=== PATIENT | female | born 1990 | race American Indian/Alaskan Native ===

== ENCOUNTER 2016-07-06 07:47 | Emergency (ER) | payer SELFPAY ==
[2016-07-06 07:55] VITALS: BP 135/90
[2016-07-06 08:31] LABS: Basophils % (Auto) 0.5 % (0.0-1.8); Eosinophils % (Auto) 0.5 % (0.0-4.3); Hemoglobin 11.3 gm/dl (10.1-14.3); Mean Corpuscular HGB Conc 32 % (30-34); Mean Corpuscular Volume 72 fl (79-97); Platelet Count 265 K/mm3 (140-440); Red Blood Count 5.02 M/mm3 (3.65-5.03); Red Cell Distribution Width 14.9 % (13.2-15.2)
[2016-07-06 08:32] LABS: Mean Corpuscular Hemoglobin 23 pg (28-32)
[2016-07-06 09:03] LABS: Alanine Aminotransferase 7 units/L (7-56); Albumin/Globulin Ratio 1.7 %; Alkaline Phosphatase 34 units/L (35-129); Anion Gap 16 mmol/L; BUN/Creatinine Ratio 18.33; Bilirubin,Total 0.2 mg/dL (0.1-1.2); Blood Urea Nitrogen 11 mg/dL (7-17); Calcium 8.5 mg/dL (8.4-10.2); Carbon Dioxide 24 mmol/L (22-30); Chloride 106.9 mmol/L (98-107); Glucose 100 mg/dL (65-100); Lipase 29 units/L (13-60); Potassium 4.2 mmol/L (3.6-5.0); Sodium 143 mmol/L (137-145); Total Protein 6.3 g/dL (6.3-8.2)
[2016-07-06 12:52] LABS: Bilirubin,Urine NEG (Negative); Blood,Urine NEG (Negative); Ketones,Urine NEG (Negative); Leukocyte Esterase,Urine TR (Negative); Mucus,Urine 1+ /HPF; Nitrite,Urine NEG (Negative); Protein,Urine <15 mg/dL mg/dL (Negative); Urobilinogen,Urine < 2.0 mg/dL (<2.0)
--- NOTE | 2016-07-07 05:52 | ED Elopement Review ---
ED Pt Elopement review - Results review Lab results: Laboratory Tests 07/06/16 07/06/16 07/06/16 08:20 08:20 08:20 WBC 7.0 RBC 5.02 Hgb 11.3 Hct 36.0 MCV 72 L MCH 23 L MCHC 32 RDW 14.9 Plt Count 265 Lymph % (Auto) 18.6 [place] % (Auto) 6.0 Eos % (Auto) 0.5 Baso % (Auto) 0.5 Lymph # 1.3 [place] # 0.4 Eos # 0.0 Baso # 0.0 Seg Neutrophils % 74.4 H Seg Neutrophils # 5.2 Carbon Dioxide 24 BUN 11 Creatinine 0.6 L Estimated GFR > 60 BUN/Creatinine Ratio 18.33 Glucose 100 Calcium 8.5 Total Bilirubin 0.2 AST 12 ALT 7 Alkaline Phosphatase 34 L Total Protein 6.3 Albumin 4.0 Albumin/Globulin Ratio 1.7 Lipase 29 HCG, Qual Negative Urine Color Urine Turbidity Urine pH Ur Specific [place] Urine Protein Urine Glucose (UA) Urine Ketones Urine Blood Urine Nitrite Urine Bilirubin Urine Urobilinogen Ur Leukocyte Esterase Urine WBC (Auto) Urine RBC (Auto) U Epithel Cells (Auto) Urine Mucus 07/06/16 11:52 WBC RBC Hgb Hct MCV MCH MCHC RDW Plt Count Lymph % (Auto) [place] % (Auto) Eos % (Auto) Baso % (Auto) Lymph # [place] # Eos # Baso # Seg Neutrophils % Seg Neutrophils # Carbon Dioxide BUN Creatinine Estimated GFR BUN/Creatinine Ratio Glucose Calcium Total Bilirubin AST ALT Alkaline Phosphatase Total Protein Albumin Albumin/Globulin Ratio Lipase HCG, Qual Urine Color Yellow Urine Turbidity Clear Urine pH 8.0 H Ur Specific [place] 1.023 Urine Protein <15 mg/dl Urine Glucose (UA) Neg Urine Ketones Neg Urine Blood Neg Urine Nitrite Neg Urine Bilirubin Neg Urine Urobilinogen < 2.0 Ur Leukocyte Esterase Tr Urine WBC (Auto) 3.0 Urine RBC (Auto) 3.0 U Epithel Cells (Auto) 3.0 Urine Mucus 1+ - Call Back decision Pt Call Back Decision: No action required
== END 2016-07-06 08:25 | disposition left against medical advice (07) ==
LOC: ED 07:47
DX: R10.11 Right upper quadrant pain (principal); R11.2 Nausea with vomiting, unspecified; Z53.21 Procedure and treatment not carried out due to patient leaving prior to being seen by health care provider
CPT/HCPCS: 36415; 80053; 81001; 83690; 84703; 85025

== ENCOUNTER 2017-01-12 08:46 | Emergency (ER) | payer OTHER ==
[2017-01-12 09:05] VITALS: BP 133/96
[2017-01-12] MEDS ORDERED: ATIVAN IV PRN (09:09)
[2017-01-12] MEDS ORDERED: REGLAN IV ONE (09:09)
[2017-01-12] MEDS ORDERED: MORPHINE IV ONE ×2 (09:09→10:32)
[2017-01-12] MEDS ORDERED: NACL 0.9% 1000 ML 1,000 ML IV ONE (09:09)
[2017-01-12 09:25] LABS: Basophils % (Auto) 0.8 % (0.0-1.8); Eosinophils % (Auto) 0.8 % (0.0-4.3); Hematocrit 34.3 % (30.3-42.9); Hemoglobin 10.7 gm/dl (10.1-14.3); Mean Corpuscular HGB Conc 31 % (30-34); Mean Corpuscular Volume 71 fl (79-97); Platelet Count 267 K/mm3 (140-440); Red Blood Count 4.86 M/mm3 (3.65-5.03); White Blood Count 5.1 K/mm3 (4.5-11.0)
[2017-01-12 09:26] LABS: Mean Corpuscular Hemoglobin 22 pg (28-32)
[2017-01-12 09:42] LABS: Anion Gap 20 mmol/L; Blood Urea Nitrogen 10 mg/dL (7-17); Calcium 8.3 mg/dL (8.4-10.2); Carbon Dioxide 22 mmol/L (22-30); Chloride 104.3 mmol/L (98-107); Glucose 103 mg/dL (65-100); Potassium 3.8 mmol/L (3.6-5.0); Sodium 142 mmol/L (137-145)
[2017-01-12 09:58] LABS: Bilirubin,Urine NEG (Negative); Blood,Urine LG (Negative); Ketones,Urine 20 mg/dL (Negative); Leukocyte Esterase,Urine TR (Negative); Mucus,Urine FEW /HPF; Nitrite,Urine NEG (Negative); Protein,Urine <15 mg/dL mg/dL (Negative); Urobilinogen,Urine < 2.0 mg/dL (<2.0); WBC,Urine < 1.0 /HPF (0.0-6.0)
[2017-01-12] MEDS ORDERED: ATIVAN IV ONE (10:32)
--- NOTE | 2017-01-12 10:37 | Emergency Department Report ---
ED N/V/D HPI - General Chief complaint: Abdominal Pain Stated complaint: ABD PAIN Time Seen by Provider: 01/12/17 10:21 Source: EMS Mode of arrival: Stretcher Limitations: No Limitations - History of Present Illness Initial comments: 26-year-old female with known history of gastroparesis here with worsening nausea vomiting since yesterday. Patient symptoms started last evening. She tried some promethazine and chicken broth was unable to keep down. She is complaining of crampy pain throughout her abdomen. Her last flare was approximately 2 days ago that she was able to "those symptoms. Denies fevers chills. No diarrhea. 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 -: Sudden Description of Vomiting: food contents Description of Diarrhea: water, mucous Associated Abdominal Pain: Yes Location: diffuse Radiation: none Severity: moderate Improves with: none Worsens with: eating, movement Associated Symptoms: nausea/vomiting, other (gastroparesis). denies: myalgias, chest pain, cough, diaphoresis, fever/chills, headaches, loss of appetite - Related Data Home Medications Medication Instructions Recorded Confirmed Last Taken No Known Home Medications [No 07/06/16 07/06/16 Unknown Reported Home Medications] Allergies Allergy/AdvReac Type Severity Reaction Status Date / Time haloperidol lactate AdvReac Unknown Verified 01/12/17 09:00 [From Haldol] tramadol AdvReac Unknown Verified 01/12/17 09:00 ED Review of Systems ROS: Stated complaint: ABD PAIN Other details as noted in HPI Comment: All other systems reviewed and negative Constitutional: denies: chills, fever Eyes: denies: eye pain, eye discharge, vision change ENT: denies: ear pain, throat pain Respiratory: denies: cough, shortness of breath, wheezing Cardiovascular: denies: chest pain, palpitations Endocrine: no symptoms reported Gastrointestinal: abdominal pain, nausea, vomiting. denies: diarrhea, hematemesis Genitourinary: denies: urgency, dysuria, discharge Musculoskeletal: denies: back pain, joint swelling, arthralgia Skin: denies: rash, lesions Neurological: denies: headache, weakness, paresthesias Psychiatric: denies: anxiety, depression Hematological/Lymphatic: denies: easy bleeding, easy bruising ED Past Medical Hx - Past Medical History Previous Medical History?: Yes Hx Psychiatric Treatment: Yes (ANXIETY / DEPRESSION /Substance abuse) Additional medical history: gastroparesis - Surgical History Additional Surgical History: - Family History Family history: no significant - Social History Smoking Status: Never Smoker Substance Use Type: None - Medications Home Medications: Home Medications Medication Instructions Recorded Confirmed Last Taken Type No Known Home Medications [No 07/06/16 07/06/16 Unknown History Reported Home Medications] ED Physical Exam - General Limitations: No Limitations General appearance: alert, other (tearful) - Head Head exam: Present: atraumatic, normocephalic - Eye Eye exam: Present: normal appearance, PERRL - ENT ENT exam: Present: normal orophraynx, mucous membranes moist - Neck Neck exam: Present: normal inspection - Respiratory Respiratory exam: Present: normal lung sounds bilaterally. Absent: respiratory distress, wheezes, rales - Cardiovascular Cardiovascular Exam: Present: regular rate, normal rhythm. Absent: systolic murmur, diastolic murmur, rubs, gallop - GI/Abdominal GI/Abdominal exam: Present: soft, tenderness, guarding, normal bowel sounds. Absent: rebound, rigid - Extremities Exam Extremities exam: Present: normal inspection, full ROM. Absent: tenderness - Back Exam Back exam: Absent: full ROM, tenderness, CVA tenderness (R), CVA tenderness (L) - Neurological Exam Neurological exam: Present: alert, oriented X3 - Psychiatric Psychiatric exam: Present: normal affect, normal mood - Skin Skin exam: Present: warm, dry, intact, normal color. Absent: rash ED Course Vital Signs 01/12/17 01/12/17 08:54 09:03 Temperature 98.7 F 98.7 F Pulse Rate 70 Respiratory 18 Rate Blood Pressure 133/96 [Left] O2 Sat by Pulse 100 Oximetry ED Medical Decision Making - Lab Data Result diagrams: 01/12/17 09:12 01/12/17 09:12 Laboratory Results - last 24 hr 01/12/17 01/12/17 01/12/17 09:04 09:12 09:12 WBC 5.1 RBC 4.86 Hgb 10.7 Hct 34.3 MCV 71 L MCH 22 L MCHC 31 RDW 14.0 Plt Count 267 Lymph % (Auto) 34.0 [place] % (Auto) 7.6 H Eos % (Auto) 0.8 Baso % (Auto) 0.8 Lymph # 1.7 [place] # 0.4 Eos # 0.0 Baso # 0.0 Seg Neutrophils % 56.8 Seg Neutrophils # 2.9 Sodium 142 Potassium 3.8 Chloride 104.3 Carbon Dioxide 22 Anion Gap 20 BUN 10 Creatinine 0.5 L Estimated GFR > 60 BUN/Creatinine Ratio 20.00 Glucose 103 H Calcium 8.3 L Urine Color Straw Urine Turbidity Clear Urine pH 6.0 Ur Specific [place] 1.017 Urine Protein <15 mg/dl Urine Glucose (UA) Neg Urine Ketones 20 Urine Blood Lg Urine Nitrite Neg Ur Reducing Substances Not Reportable Urine Bilirubin Neg Urine Ictotest Not Reportable Urine Urobilinogen < 2.0 Ur Leukocyte Esterase Tr Urine WBC (Auto) < 1.0 Urine RBC (Auto) 147.0 U Epithel Cells (Auto) 2.0 Urine Mucus Few Urine HCG, Qual Negative - Medical Decision Making 26-year-old female with a history of gastroparesis here with recurrent episode of gastroparesis. Patient is very dramatic and tearful. She has diffuse tenderness on clinical exam. She is not . She has no white count and her chemistry is unremarkable. Plan to treat with IV fluids and morphine and Ativan and Zofran. If unable to improve we'll admit to the hospital. Patient improved after 2 rounds of morphine and Ativan however she was requesting Dilaudid which I declined to give her. The patient eloped after my refusal. She is safe and stable to leave on her own. Portions of this chart were dictated with dictation software. There may be dictation errors contained within this note. Critical care attestation.: If time is entered above; I have spent that time in minutes in the direct care of this critically ill patient, excluding procedure time. ED Disposition Clinical Impression: Nausea & vomiting, Abdominal pain Disposition: Z ELOPED Is pt being admited?: No Condition: Stable Instructions: Abdominal Pain (ED) Referrals: PRIMARY CARE, [Primary Care Provider] - 3-5 Days
== END 2017-01-12 14:40 | disposition left against medical advice (07) ==
LOC: ED 08:46
DX: R11.2 Nausea with vomiting, unspecified (principal); R10.84 Generalized abdominal pain; F41.9 Anxiety disorder, unspecified; F32.9 Major depressive disorder, single episode, unspecified; K31.84 Gastroparesis; Z88.8 Allergy status to other drugs, medicaments and biological substances
CPT/HCPCS: 36415; 80048; 81001; 81025; 85025; 96361; 96374; 96375; 96376; 99283; J2060; J2270; J2765; J7030

== ENCOUNTER 2017-01-18 11:14 | Emergency (ER) | payer OTHER ==
[2017-01-18] MEDS ORDERED: DILAUDID IV ONE ×2 (11:39→13:13)
[2017-01-18] MEDS ORDERED: BENADRYL IV ONE (11:39)
[2017-01-18] MEDS ORDERED: REGLAN IV ONE (11:39)
[2017-01-18 12:00] LABS: Basophils % (Auto) 0.6 % (0.0-1.8); Eosinophils % (Auto) 1.1 % (0.0-4.3); Hematocrit 38.3 % (30.3-42.9); Hemoglobin 11.9 gm/dl (10.1-14.3); Mean Corpuscular HGB Conc 31 % (30-34); Mean Corpuscular Volume 72 fl (79-97); Platelet Count 357 K/mm3 (140-440); Red Blood Count 5.33 M/mm3 (3.65-5.03); Red Cell Distribution Width 14.6 % (13.2-15.2); White Blood Count 4.9 K/mm3 (4.5-11.0)
[2017-01-18] MEDS ORDERED: D5NS 1,000 ML IV SCH (12:00)
[2017-01-18 12:08] LABS: Mean Corpuscular Hemoglobin 22 pg (28-32)
[2017-01-18 12:19] LABS: Alanine Aminotransferase 9 units/L (7-56); Albumin 4.8 g/dL (3.9-5); Albumin/Globulin Ratio 2.1 %; Alkaline Phosphatase 32 units/L (35-129); Anion Gap 17 mmol/L; Blood Urea Nitrogen 8 mg/dL (7-17); Calcium 9.3 mg/dL (8.4-10.2); Carbon Dioxide 26 mmol/L (22-30); Chloride 101.6 mmol/L (98-107); Glucose 101 mg/dL (65-100); Lipase 37 units/L (13-60); Sodium 141 mmol/L (137-145); Total Protein 7.1 g/dL (6.3-8.2)
--- NOTE | 2017-01-18 12:46 | Emergency Department Report ---
ED Abdominal Pain HPI - General Chief Complaint: Abdominal Pain Stated Complaint: N/V Time Seen by Provider: 01/18/17 11:35 Source: patient, EMS Mode of arrival: Stretcher Limitations: No Limitations - History of Present Illness Initial Comments: 26 year old female with a past medical history of gastroparesis, substance abuse , anxiety and depression presents to the hospital complaints of abdominal pain and nausea and vomiting that started 2 hours prior to arrival. Pain is 10/10 intensity described as sharp, crampy, and aching, constant, worse palpation and greatest at the right upper quadrant and epigastric area. Patient reports this is similar to her gastroparesis episodes in the past. She has had extensive previous workup including colonoscopy, ultrasounds, CAT scans. Patient is to see a GI specialist with [facility] but after losing her insurance she got a bradycardic and seen by [facility]. Patient was seen and evaluated here on the for similar symptoms and was discharged after ED treatment. Patient states she took Phenergan prior to arrival without improvement. Severity scale (0 -10): 3 - Related Data Previous Rx's Medication Instructions Recorded Last Taken Type Ondansetron [Zofran Odt] 4 mg PO Q8HR PRN #20 tab.rapdis 01/18/17 Unknown Rx Oxycodone HCl/Acetaminophen 1 each PO Q6HR PRN #20 tablet 01/18/17 Unknown Rx [Percocet 7.5/325 mg] Allergies Allergy/AdvReac Type Severity Reaction Status Date / Time haloperidol lactate AdvReac Unknown Verified 01/12/17 09:00 [From Haldol] tramadol AdvReac Unknown Verified 01/12/17 09:00 ED Review of Systems ROS: Stated complaint: N/V Other details as noted in HPI Comment: All other systems reviewed and negative Other: Constitutional: No fevers chills or weight loss Eyes: No eye pain visual changes or discharge ENT: No ear pain or throat pain Neck: Denies pain Respiratory: Denies cough wheezing shortness of breath Cardiovascular: Denies chest pain, palpitations, syncope GI: As per HPI : Denies dysuria Musculoskeletal: Denies back pain, joint swelling Skin: Denies rash, lesions, erythema Neurologic: Denies headache, numbness, weakness Psychiatric: Denies suicidal ideation, hallucinations ED Past Medical Hx - Past Medical History Hx Psychiatric Treatment: Yes (ANXIETY / DEPRESSION /Substance abuse) Additional medical history: gastroparesis - Surgical History Additional Surgical History: - Social History Smoking Status: Light Tobacco Smoker Substance Use Type: Marijuana - Medications Home Medications: Home Medications Medication Instructions Recorded Confirmed Last Taken Type Ondansetron [Zofran Odt] 4 mg PO Q8HR PRN #20 tab.rapdis 01/18/17 Unknown Rx Oxycodone HCl/Acetaminophen 1 each PO Q6HR PRN #20 tablet 01/18/17 Unknown Rx [Percocet 7.5/325 mg] ED Physical Exam - General Limitations: No Limitations - Other Other exam information: General: No limitations, patient is alert in no acute distress Head exam: Atraumatic, normocephalic Eyes exam: Normal appearance ENT: Moist mucous membrane, normal oropharynx Neck exam: Normal inspection, full range of motion, no meningismus nontender Respiratory exam: Clear to auscultation bilateral, no wheezes, rales, crackles Cardiovascular: Normal rate and rhythm, normal heart sounds Abdomen: Soft, nondistended, generalized tenderness greatest in the right upper quadrant and epigastric area Extremity: Full range of motion normal inspection no deformity Back: Normal Inspection, full range of motion, no tenderness Neurologic: Alert, oriented x3, cranial nerves intact, no motor or sensory deficit Psychiatric: Tearful, thrashing in bed secondary to pain Skin: Warm, dry, intact ED Course Vital Signs 01/18/17 01/18/17 01/18/17 11:27 11:43 11:51 Temperature 98.3 F Pulse Rate 95 H 58 L Respiratory 16 0 L Rate Blood Pressure 160/98 Blood Pressure [Left] O2 Sat by Pulse 99 100 94 Oximetry 01/18/17 01/18/17 12:07 12:11 Temperature 99 F Pulse Rate 62 Respiratory 16 16 Rate Blood Pressure Blood Pressure 148/84 [Left] O2 Sat by Pulse 97 98 Oximetry - Reevaluation(s) Reevaluation #1: 01/18/17 12:49 Patient was treated with Dilaudid, IV fluids (D5 NS), Reglan, and Benadryl (pt received NS 1 L Via EMS) 01/18/17 14:19 Patient currently feeling better after a total of 2 mg of Dilaudid name of medication. Receiving IV fluids and will be discharged upon completion. Patient agrees that she does not feel like she needs any imaging studies at this time because pain is similar to previous exacerbations 01/18/17 14:31 ED Medical Decision Making - Lab Data Result diagrams: 01/18/17 11:47 01/18/17 11:47 Lab Results 01/18/17 01/18/17 01/18/17 Range/Units 11:47 11:47 11:47 WBC 4.9 (4.5-11.0) K/mm3 RBC 5.33 H (3.65-5.03) M/mm3 Hgb 11.9 (10.1-14.3) gm/dl Hct 38.3 (30.3-42.9) % MCV 72 L (79-97) fl MCH 22 L (28-32) pg MCHC 31 (30-34) % RDW 14.6 (13.2-15.2) % Plt Count 357 (140-440) K/mm3 Lymph % (Auto) 36.7 H (13.4-35.0) % [place] % (Auto) 6.9 (0.0-7.3) % Eos % (Auto) 1.1 (0.0-4.3) % Baso % (Auto) 0.6 (0.0-1.8) % Lymph # 1.8 (1.2-5.4) K/mm3 [place] # 0.3 (0.0-0.8) K/mm3 Eos # 0.1 (0.0-0.4) K/mm3 Baso # 0.0 (0.0-0.1) K/mm3 Seg Neutrophils % 54.7 (40.0-70.0) % Seg Neutrophils # 2.7 (1.8-7.7) K/mm3 Sodium 141 (137-145) mmol/L Potassium 4.0 (3.6-5.0) mmol/L Chloride 101.6 (98-107) mmol/L Carbon Dioxide 26 (22-30) mmol/L Anion Gap 17 mmol/L BUN 8 (7-17) mg/dL Creatinine 0.5 L (0.7-1.2) mg/dL Estimated GFR > 60 ml/min BUN/Creatinine Ratio 16.00 % Glucose 101 H (65-100) mg/dL POC Glucose (70-105) Calcium 9.3 (8.4-10.2) mg/dL Total Bilirubin 0.30 (0.1-1.2) mg/dL AST 11 (5-40) units/L ALT 9 (7-56) units/L Alkaline Phosphatase 32 L (35-129) units/L Total Protein 7.1 (6.3-8.2) g/dL Albumin 4.8 (3.9-5) g/dL Albumin/Globulin Ratio 2.1 % Lipase 37 (13-60) units/L HCG, Qual Negative (Negative) 01/18/17 Range/Units 11:56 WBC (4.5-11.0) K/mm3 RBC (3.65-5.03) M/mm3 Hgb (10.1-14.3) gm/dl Hct (30.3-42.9) % MCV (79-97) fl MCH (28-32) pg MCHC (30-34) % RDW (13.2-15.2) % Plt Count (140-440) K/mm3 Lymph % (Auto) (13.4-35.0) % [place] % (Auto) (0.0-7.3) % Eos % (Auto) (0.0-4.3) % Baso % (Auto) (0.0-1.8) % Lymph # (1.2-5.4) K/mm3 [place] # (0.0-0.8) K/mm3 Eos # (0.0-0.4) K/mm3 Baso # (0.0-0.1) K/mm3 Seg Neutrophils % (40.0-70.0) % Seg Neutrophils # (1.8-7.7) K/mm3 Sodium (137-145) mmol/L Potassium (3.6-5.0) mmol/L Chloride (98-107) mmol/L Carbon Dioxide (22-30) mmol/L Anion Gap mmol/L BUN (7-17) mg/dL Creatinine (0.7-1.2) mg/dL Estimated GFR ml/min BUN/Creatinine Ratio % Glucose (65-100) mg/dL POC Glucose 98 (70-105) Calcium (8.4-10.2) mg/dL Total Bilirubin (0.1-1.2) mg/dL AST (5-40) units/L ALT (7-56) units/L Alkaline Phosphatase (35-129) units/L Total Protein (6.3-8.2) g/dL Albumin (3.9-5) g/dL Albumin/Globulin Ratio % Lipase (13-60) units/L HCG, Qual (Negative) - Medical Decision Making Pain and vomiting is controlled without any acute lab abnormality. Patient did not receive imaging studies due to complaint of exacerbation of chronic pain and normal laboratory findings. Patient admits to running out of her Percocet and states that she plans to see pain management if GI continues not to find any specific diagnosis beyond gaseous previous - Differential Diagnosis gastroparesis, biliary colic, drug-seeking, UTI, appendicitis, diverticul Critical Care Time: No Critical care attestation.: If time is entered above; I have spent that time in minutes in the direct care of this critically ill patient, excluding procedure time. ED Disposition Clinical Impression: Nausea & vomiting, Abdominal pain, Gastroparesis Disposition: - TO HOME OR SELFCARE Is pt being admited?: No Condition: Stable Instructions: Abdominal Pain (ED), Acute Nausea and Vomiting (ED) Additional Instructions: Take the medication as prescribed. Return if symptoms worsen. Prescriptions: Ondansetron [Zofran Odt] 4 mg PO Q8HR PRN #20 tab.rapdis PRN Reason: Nausea And Vomiting Oxycodone HCl/Acetaminophen [Percocet 7.5/325 mg] 1 each PO Q6HR PRN #20 tablet PRN Reason: Pain Referrals: your, gi doctor [Other] - 3-5 Days Time of Disposition: 14:31
[2017-01-18 13:29] LABS: Bilirubin,Urine NEG (Negative); Blood,Urine NEG (Negative); Ketones,Urine NEG (Negative); Leukocyte Esterase,Urine NEG (Negative); Mucus,Urine FEW /HPF; Nitrite,Urine NEG (Negative); Protein,Urine <15 mg/dL mg/dL (Negative); RBC,Urine < 1.0 /HPF (0.0-6.0); Urobilinogen,Urine < 2.0 mg/dL (<2.0)
[2017-01-18 15:33] VITALS: BP 113/57
== END 2017-01-18 15:33 | disposition home or self-care (01) ==
LOC: ED 11:14
DX: K31.84 Gastroparesis (principal); R11.2 Nausea with vomiting, unspecified; F41.9 Anxiety disorder, unspecified; F32.9 Major depressive disorder, single episode, unspecified; F17.210 Nicotine dependence, cigarettes, uncomplicated; F12.90 Cannabis use, unspecified, uncomplicated; Z88.8 Allergy status to other drugs, medicaments and biological substances
CPT/HCPCS: 36415; 80053; 81001; 82962; 83690; 84703; 85025; 96361; 96374; 96375; 96376; 99284; J1170; J1200; J2765; J7042

== ENCOUNTER 2017-06-03 09:11 | Emergency (ER) | payer OTHER ==
[2017-06-03] MEDS ORDERED: DILAUDID IV ONE ×2 (09:52→11:19)
[2017-06-03] MEDS ORDERED: BENADRYL IV ONE (09:52)
[2017-06-03] MEDS ORDERED: REGLAN IV ONE (09:52)
[2017-06-03] MEDS ORDERED: NACL 0.9% 1000 ML 1,000 ML IV ONE (09:56)
[2017-06-03] MEDS ORDERED: ZOFRAN IV ONE (09:56)
[2017-06-03] MEDS ORDERED: DILAUDID ONE ×2 (10:02→12:39)
[2017-06-03 10:04] LABS: Basophils % (Auto) 0.9 % (0.0-1.8); Eosinophils % (Auto) 0.8 % (0.0-4.3); Hematocrit 36.6 % (30.3-42.9); Hemoglobin 11.3 gm/dl (10.1-14.3); Mean Corpuscular HGB Conc 31 % (30-34); Mean Corpuscular Volume 71 fl (79-97); Platelet Count 315 K/mm3 (140-440); Red Blood Count 5.15 M/mm3 (3.65-5.03); Red Cell Distribution Width 14.6 % (13.2-15.2); White Blood Count 7.1 K/mm3 (4.5-11.0)
[2017-06-03 10:09] LABS: Mean Corpuscular Hemoglobin 22 pg (28-32)
[2017-06-03 10:13] LABS: Bacteria,Urine 1+ /HPF (Negative); Bilirubin,Urine NEG (Negative); Blood,Urine NEG (Negative); Ketones,Urine NEG (Negative); Leukocyte Esterase,Urine NEG (Negative); Mucus,Urine 1+ /HPF; Nitrite,Urine NEG (Negative); Protein,Urine <15 mg/dL mg/dL (Negative); Urobilinogen,Urine < 2.0 mg/dL (<2.0)
[2017-06-03 10:17] LABS: Anion Gap 19 mmol/L; BUN/Creatinine Ratio 18; Blood Urea Nitrogen 9 mg/dL (7-17); Calcium 8.6 mg/dL (8.4-10.2); Carbon Dioxide 23 mmol/L (22-30); Chloride 106.3 mmol/L (98-107); Glucose 106 mg/dL (65-100); Potassium 3.8 mmol/L (3.6-5.0); Sodium 144 mmol/L (137-145)
[2017-06-03 10:45] LABS: Alanine Aminotransferase 8 units/L (7-56); Albumin 4.3 g/dL (3.9-5); Albumin/Globulin Ratio 1.8 %; Alkaline Phosphatase 33 units/L (35-129); Lipase 29 units/L (13-60); Total Protein 6.7 g/dL (6.3-8.2)
[2017-06-03 10:57] LABS: Bilirubin,Direct < 0.2 mg/dL (0-0.2)
--- NOTE | 2017-06-03 11:29 | Emergency Department Report ---
ED Abdominal Pain HPI - General Chief Complaint: Abdominal Pain Stated Complaint: ABD PAIN Time Seen by Provider: 06/03/17 11:18 Source: patient, old records reviewed Mode of arrival: Stretcher Limitations: No Limitations - History of Present Illness Initial Comments: 27-year-old female the past medical history gastroparesis presents to the hospital complaining of abdominal pain since 7 AM. Pain is constant, aching and sharp, right upper quadrant radiates to the back. Pain is rated 10/10 intensity. Positive associated nausea, vomiting, diarrhea, with by mouth intolerance. Patient states this feels similar to her previous gastroparesis episodes that started after receiving a . Patient states she's not had a significant flare for at least 3 months. She has had previous GI workup including colonoscopy, endoscopy, and gallbladder checked and denies other pathology. No melena, hematochezia, hematemesis, or fever reported. Previous medical records reviewed and last abd CT/US on record was performed 2013. Severity scale (0 -10): 10 - Related Data Previous Rx's Medication Instructions Recorded Last Taken Type Oxycodone HCl/Acetaminophen 1 each PO Q6HR PRN #20 tablet 01/18/17 Unknown Rx [Percocet 7.5/325 mg] HYDROcodone/APAP 7.5-325 [[place] 1 each PO Q6HR PRN #20 tablet 06/03/17 Unknown Rx 7.5/325] Ondansetron [Zofran ODT TAB] 4 mg PO Q8HR PRN #10 tab.rapdis 06/03/17 Unknown Rx Promethazine [Phenergan TAB] 25 mg PO Q6HR PRN #30 tab 06/03/17 Unknown Rx Allergies Allergy/AdvReac Type Severity Reaction Status Date / Time haloperidol lactate AdvReac Unknown Verified 01/12/17 09:00 [From Haldol] tramadol AdvReac Unknown Verified 01/12/17 09:00 ED Review of Systems ROS: Stated complaint: ABD PAIN Other details as noted in HPI Comment: All other systems reviewed and negative Other: Constitutional: No fevers chills Eyes: No eye pain visual changes ENT: No ear pain or throat pain Neck: Denies pain Respiratory: Denies cough wheezing shortness of breath Cardiovascular: Denies chest pain, palpitations, syncope GI: as per hpi : Denies dysuria Musculoskeletal: denies joint swelling Skin: Denies rash, lesions, erythema Neurologic: Denies headache, numbness, weakness Psychiatric: Denies suicidal ideation, hallucinations ED Past Medical Hx - Past Medical History Hx Psychiatric Treatment: Yes (ANXIETY / DEPRESSION /Substance abuse) Additional medical history: gastroparesis - Surgical History Additional Surgical History: - Social History Smoking Status: Light Tobacco Smoker Substance Use Type: None - Medications Home Medications: Home Medications Medication Instructions Recorded Confirmed Last Taken Type Oxycodone HCl/Acetaminophen 1 each PO Q6HR PRN #20 tablet 01/18/17 Unknown Rx [Percocet 7.5/325 mg] HYDROcodone/APAP 7.5-325 [[place] 1 each PO Q6HR PRN #20 tablet 06/03/17 Unknown Rx 7.5/325] Ondansetron [Zofran ODT TAB] 4 mg PO Q8HR PRN #10 tab.rapdis 06/03/17 Unknown Rx Promethazine [Phenergan TAB] 25 mg PO Q6HR PRN #30 tab 06/03/17 Unknown Rx ED Physical Exam - General Limitations: No Limitations - Other Other exam information: General: Patient standing and moving around and would not remain still due to pain Head exam: Atraumatic, normocephalic Eyes exam: Normal appearance, nonicteric sclera ENT: Moist mucous membrane, normal oropharynx Neck exam: Normal inspection, full range of motion, no meningismus nontender Respiratory exam: Clear to auscultation bilateral, no wheezes, rales, crackles Cardiovascular: Tachycardia regular rhythm Abdomen: Soft, nondistended, right upper quadrant tenderness, no rebound or guarding Extremity: Full range of motion normal inspection no deformity Back: Normal Inspection, full range of motion, no tenderness Neurologic: Alert, oriented x3, cranial nerves intact, no motor or sensory deficit Psychiatric: Tearful secondary to pain Skin: Warm, dry, intact ED Course Vital Signs 06/03/17 06/03/17 06/03/17 09:21 09:23 09:34 Temperature 98.6 F Pulse Rate 118 H 80 Respiratory 18 30 H 12 Rate Blood Pressure O2 Sat by Pulse 100 100 Oximetry 06/03/17 06/03/17 09:46 10:00 Temperature Pulse Rate 81 Respiratory 23 Rate Blood Pressure 118/49 118/49 O2 Sat by Pulse 100 100 Oximetry - Reevaluation(s) Reevaluation #1: 06/03/17 14:11 After Dilaudid 1 mg with repeat dose, Zofran, Reglan, and Benadryl patient was able to tolerate by mouth intake and pain free. Patient drank a pitcher of water while in the ED without difficulty. Reevaluation #2: 06/03/17 14:26 Repeat vital signs at this time BP 111/71, pulse 76, pulse ox 97%, respiratory rate 10 ED Medical Decision Making - Lab Data Result diagrams: 06/03/17 09:44 06/03/17 09:44 Lab Results 06/03/17 06/03/17 06/03/17 Range/Units 09:33 09:44 09:44 WBC 7.1 (4.5-11.0) K/mm3 RBC 5.15 H (3.65-5.03) M/mm3 Hgb 11.3 (10.1-14.3) gm/dl Hct 36.6 (30.3-42.9) % MCV 71 L (79-97) fl MCH 22 L (28-32) pg MCHC 31 (30-34) % RDW 14.6 (13.2-15.2) % Plt Count 315 (140-440) K/mm3 Lymph % (Auto) 25.4 (13.4-35.0) % [place] % (Auto) 6.8 (0.0-7.3) % Eos % (Auto) 0.8 (0.0-4.3) % Baso % (Auto) 0.9 (0.0-1.8) % Lymph # 1.8 (1.2-5.4) K/mm3 [place] # 0.5 (0.0-0.8) K/mm3 Eos # 0.1 (0.0-0.4) K/mm3 Baso # 0.1 (0.0-0.1) K/mm3 Seg Neutrophils % 66.1 (40.0-70.0) % Seg Neutrophils # 4.7 (1.8-7.7) K/mm3 Sodium 144 (137-145) mmol/L Potassium 3.8 (3.6-5.0) mmol/L Chloride 106.3 (98-107) mmol/L Carbon Dioxide 23 (22-30) mmol/L Anion Gap 19 mmol/L BUN 9 (7-17) mg/dL Creatinine 0.5 L (0.7-1.2) mg/dL Estimated GFR > 60 ml/min BUN/Creatinine Ratio 18 % Glucose 106 H (65-100) mg/dL Calcium 8.6 (8.4-10.2) mg/dL Total Bilirubin (0.1-1.2) mg/dL Direct Bilirubin (0-0.2) mg/dL AST (5-40) units/L ALT (7-56) units/L Alkaline Phosphatase (35-129) units/L Total Protein (6.3-8.2) g/dL Albumin (3.9-5) g/dL Albumin/Globulin Ratio % Lipase (13-60) units/L Urine Color Yellow (Yellow) Urine Turbidity Clear (Clear) Urine pH 5.0 (5.0-7.0) Ur Specific [place] 1.025 (1.003-1.030) Urine Protein <15 mg/dl (Negative) mg/dL Urine Glucose (UA) Neg (Negative) mg/dL Urine Ketones Neg (Negative) mg/dL Urine Blood Neg (Negative) Urine Nitrite Neg (Negative) Ur Reducing Substances Not Reportable Urine Bilirubin Neg (Negative) Urine Ictotest Not Reportable Urine Urobilinogen < 2.0 (<2.0) mg/dL Ur Leukocyte Esterase Neg (Negative) Urine WBC (Auto) 2.0 (0.0-6.0) /HPF Urine RBC (Auto) 2.0 (0.0-6.0) /HPF U Epithel Cells (Auto) 2.0 (0-13.0) /HPF Urine Bacteria (Auto) 1+ (Negative) /HPF Calcium Oxalate Crystal Few Urine Mucus 1+ /HPF Urine HCG, Qual Negative (Negative) Urine Opiates Screen Urine Methadone Screen Ur Barbiturates Screen Ur Phencyclidine Scrn Ur Amphetamines Screen U Benzodiazepines Scrn Urine Cocaine Screen U Marijuana (THC) Screen Drugs of Abuse Note 06/03/17 06/03/17 Range/Units 09:48 10:00 WBC (4.5-11.0) K/mm3 RBC (3.65-5.03) M/mm3 Hgb (10.1-14.3) gm/dl Hct (30.3-42.9) % MCV (79-97) fl MCH (28-32) pg MCHC (30-34) % RDW (13.2-15.2) % Plt Count (140-440) K/mm3 Lymph % (Auto) (13.4-35.0) % [place] % (Auto) (0.0-7.3) % Eos % (Auto) (0.0-4.3) % Baso % (Auto) (0.0-1.8) % Lymph # (1.2-5.4) K/mm3 [place] # (0.0-0.8) K/mm3 Eos # (0.0-0.4) K/mm3 Baso # (0.0-0.1) K/mm3 Seg Neutrophils % (40.0-70.0) % Seg Neutrophils # (1.8-7.7) K/mm3 Sodium (137-145) mmol/L Potassium (3.6-5.0) mmol/L Chloride (98-107) mmol/L Carbon Dioxide (22-30) mmol/L Anion Gap mmol/L BUN (7-17) mg/dL Creatinine (0.7-1.2) mg/dL Estimated GFR ml/min BUN/Creatinine Ratio % Glucose (65-100) mg/dL Calcium (8.4-10.2) mg/dL Total Bilirubin 0.30 (0.1-1.2) mg/dL Direct Bilirubin < 0.2 (0-0.2) mg/dL AST 12 (5-40) units/L ALT 8 (7-56) units/L Alkaline Phosphatase 33 L (35-129) units/L Total Protein 6.7 (6.3-8.2) g/dL Albumin 4.3 (3.9-5) g/dL Albumin/Globulin Ratio 1.8 % Lipase 29 (13-60) units/L Urine Color (Yellow) Urine Turbidity (Clear) Urine pH (5.0-7.0) Ur Specific [place] (1.003-1.030) Urine Protein (Negative) mg/dL Urine Glucose (UA) (Negative) mg/dL Urine Ketones (Negative) mg/dL Urine Blood (Negative) Urine Nitrite (Negative) Ur Reducing Substances Urine Bilirubin (Negative) Urine Ictotest Urine Urobilinogen (<2.0) mg/dL Ur Leukocyte Esterase (Negative) Urine WBC (Auto) (0.0-6.0) /HPF Urine RBC (Auto) (0.0-6.0) /HPF U Epithel Cells (Auto) (0-13.0) /HPF Urine Bacteria (Auto) (Negative) /HPF Calcium Oxalate Crystal Urine Mucus /HPF Urine HCG, Qual (Negative) Urine Opiates Screen Presumptive negative Urine Methadone Screen Presumptive negative Ur Barbiturates Screen Presumptive negative Ur Phencyclidine Scrn Presumptive negative Ur Amphetamines Screen Presumptive negative U Benzodiazepines Scrn Presumptive negative Urine Cocaine Screen Presumptive negative U Marijuana (THC) Screen Presumptive positive Drugs of Abuse Note Disclamer - Radiology Data Radiology results: report reviewed read by radiologist ct abd pelvis IV contrast only: No acute findings - Medical Decision Making Patient had improvement in symptoms or ED treatment. Symptoms typical of previous gastroparesis with unremarkable labs, UA, and CT abdomen and pelvis. She is discharged with symptomatic treatment for gastroparesis - Differential Diagnosis gastroparesis, drug seeker, cholecystitis, pancreatitis, obstruction Critical Care Time: No Critical care attestation.: If time is entered above; I have spent that time in minutes in the direct care of this critically ill patient, excluding procedure time. ED Disposition Clinical Impression: Gastroparesis Disposition: DC-01 TO HOME OR SELFCARE Is pt being admited?: No Does the pt Need Aspirin: No Condition: Stable Instructions: Acute Nausea and Vomiting (ED), Acute Diarrhea (ED), Abdominal Pain (ED) Additional Instructions: Take the medication as prescribed. Follow up with the primary care clinic provided or with the doctor for choice. Return is symptoms worsen Prescriptions: HYDROcodone/APAP 7.5-325 [[place] 7.5/325] 1 each PO Q6HR PRN #20 tablet PRN Reason: Pain Ondansetron [Zofran ODT TAB] 4 mg PO Q8HR PRN #10 tab.rapdis PRN Reason: Nausea And Vomiting Promethazine [Phenergan TAB] 25 mg PO Q6HR PRN #30 tab PRN Reason: Nausea And Vomiting Referrals: [facility] [Provider Group] - 3-5 Days STEVAN BATISTA MD [Staff Physician] - 3-5 Days Forms: Work/School Release Form(ED) Time of Disposition: 14:20
[2017-06-03 12:20] LABS: Urine Drugs of Abuse Note Disclamer
--- NOTE | 2017-06-03 14:04 | Cat Scan Report ---
CT ABDOMEN PELVIS WITH CONTRAST: HISTORY: abdominal pain, nausea, vomiting, diarrhea. COMPARISON: none. TECHNIQUE: Helical CT in 1.25mm intervals following IV contrast. Sagittal and coronal reconstructions. FINDINGS: Lung bases: Normal. Liver: Normal. Biliary system: Normal. Pancreas: Normal. Spleen: Normal. Kidneys/ureters/bladder: Normal. Adrenal glands: Normal. Aorta: Normal. Intestines: Normal. Appendix: Normal. Pelvic viscera: Normal. Ascites: None. Adenopathy: None. Musculoskeletal: Normal. IMPRESSION: Unremarkable CT scan of the abdomen and pelvis with contrast.
[2017-06-03 15:11] VITALS: BP 111/71
== END 2017-06-03 15:05 | disposition home or self-care (01) ==
LOC: ED 09:11
DX: K31.84 Gastroparesis (principal); F41.9 Anxiety disorder, unspecified; F32.9 Major depressive disorder, single episode, unspecified; F17.200 Nicotine dependence, unspecified, uncomplicated; Z88.8 Allergy status to other drugs, medicaments and biological substances; Z91.011 Allergy to milk products
CPT/HCPCS: 36415; 74177; 80048; 80074; 80307; 81001; 81025; 83690; 85025; 96361; 96374; 96375; 96376; 99284; J1170; J1200; J2405; J2765; J7030; Q9967

== ENCOUNTER 2017-06-04 09:09 | Emergency (ER) | payer SELFPAY ==
[2017-06-04 09:28] VITALS: BP 128/76
[2017-06-04] MEDS ORDERED: REGLAN IV ONE (09:38)
[2017-06-04 10:03] LABS: Basophils % (Auto) 0.9 % (0.0-1.8); Eosinophils % (Auto) 1.2 % (0.0-4.3); Hematocrit 33.9 % (30.3-42.9); Hemoglobin 10.6 gm/dl (10.1-14.3); Mean Corpuscular HGB Conc 31 % (30-34); Mean Corpuscular Volume 71 fl (79-97); Platelet Count 290 K/mm3 (140-440); Red Blood Count 4.79 M/mm3 (3.65-5.03); Red Cell Distribution Width 14.6 % (13.2-15.2); White Blood Count 5.6 K/mm3 (4.5-11.0)
[2017-06-04 10:07] LABS: Mean Corpuscular Hemoglobin 22 pg (28-32)
--- NOTE | 2017-06-04 10:11 | Emergency Department Report ---
ED Abdominal Pain HPI - General Chief Complaint: Abdominal Pain Stated Complaint: GASTROPORESIS Time Seen by Provider: 06/04/17 10:08 Source: family Mode of arrival: Stretcher Limitations: No Limitations - History of Present Illness Initial Comments: Patient is 27 years old female history of gastroparesis she was seen here yesterday. Patient left the ER before M.D. assessment. Complaint: abdominal pain - Related Data Previous Rx's Medication Instructions Recorded Last Taken Type Oxycodone HCl/Acetaminophen 1 each PO Q6HR PRN #20 tablet 01/18/17 Unknown Rx [Percocet 7.5/325 mg] HYDROcodone/APAP 7.5-325 [[place] 1 each PO Q6HR PRN #20 tablet 06/03/17 Unknown Rx 7.5/325] Ondansetron [Zofran ODT TAB] 4 mg PO Q8HR PRN #10 tab.rapdis 06/03/17 Unknown Rx Promethazine [Phenergan TAB] 25 mg PO Q6HR PRN #30 tab 06/03/17 Unknown Rx Allergies Allergy/AdvReac Type Severity Reaction Status Date / Time haloperidol lactate AdvReac Unknown Verified 01/12/17 09:00 [From Haldol] tramadol AdvReac Unknown Verified 01/12/17 09:00 ED Review of Systems ROS: Stated complaint: GASTROPORESIS Other details as noted in HPI Comment: Unobtainable due to pts medical conditions ED Past Medical Hx - Past Medical History Previous Medical History?: Yes Hx Psychiatric Treatment: Yes (ANXIETY / DEPRESSION /Substance abuse) Additional medical history: gastroparesis - Surgical History Past Surgical History?: Yes Additional Surgical History: - Social History Smoking Status: Current Every Day Smoker Substance Use Type: None - Medications Home Medications: Home Medications Medication Instructions Recorded Confirmed Last Taken Type Oxycodone HCl/Acetaminophen 1 each PO Q6HR PRN #20 tablet 01/18/17 Unknown Rx [Percocet 7.5/325 mg] HYDROcodone/APAP 7.5-325 [[place] 1 each PO Q6HR PRN #20 tablet 06/03/17 Unknown Rx 7.5/325] Ondansetron [Zofran ODT TAB] 4 mg PO Q8HR PRN #10 tab.rapdis 06/03/17 Unknown Rx Promethazine [Phenergan TAB] 25 mg PO Q6HR PRN #30 tab 06/03/17 Unknown Rx ED Physical Exam - General Limitations: No Limitations ED Course Vital Signs 06/04/17 06/04/17 09:17 09:28 Temperature 98.9 F 97.4 F L Pulse Rate 74 73 Respiratory 24 20 Rate Blood Pressure 138/86 Blood Pressure 128/76 [Right] O2 Sat by Pulse 99 100 Oximetry - Reevaluation(s) Reevaluation #1: 06/04/17 10:10 Patient left the ER before M.D. assessment. ED Medical Decision Making - Lab Data Result diagrams: 06/04/17 09:38 Critical care attestation.: If time is entered above; I have spent that time in minutes in the direct care of this critically ill patient, excluding procedure time. ED Disposition Clinical Impression: Abdominal pain Disposition: DC-07 LEFT AGAINST MED ADVICE Is pt being admited?: No Condition: Stable Instructions: Abdominal Pain (ED) Referrals: JESSE GARCIA MD [Primary Care Provider] - 3-5 Days
[2017-06-04 10:22] LABS: Anion Gap 17 mmol/L; BUN/Creatinine Ratio 16; Blood Urea Nitrogen 8 mg/dL (7-17); Calcium 8.4 mg/dL (8.4-10.2); Carbon Dioxide 23 mmol/L (22-30); Chloride 103.9 mmol/L (98-107); Glucose 93 mg/dL (65-100); Lipase 23 units/L (13-60); Potassium 3.9 mmol/L (3.6-5.0); Sodium 140 mmol/L (137-145)
[2017-06-04 10:49] LABS: Alanine Aminotransferase 11 units/L (7-56); Albumin 4.1 g/dL (3.9-5); Albumin/Globulin Ratio 1.7 %; Alkaline Phosphatase 31 units/L (35-129); Total Protein 6.5 g/dL (6.3-8.2)
[2017-06-04 10:50] LABS: Bilirubin,Direct < 0.2 mg/dL (0-0.2)
== END 2017-06-04 10:08 | disposition left against medical advice (07) ==
LOC: ED 09:09
DX: Z53.21 Procedure and treatment not carried out due to patient leaving prior to being seen by health care provider (principal)
CPT/HCPCS: 36415; 80048; 80074; 83690; 84703; 85025; J2765